=== PATIENT | female | born 1965 | race Caucasian/White ===

== ENCOUNTER 2022-10-10 14:51 | Emergency (ER) | payer OTHER, SELFPAY ==
[2022-10-10 15:09] VITALS: BP 125/64; PULSE 92; RESP 16; TEMP 37; O2SAT 100
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
== END 2022-10-10 15:56 | disposition home or self-care (01) ==
PROVIDERS: Emergency Provider Registered Nurse
DX: J01.10 Acute frontal sinusitis, unspecified (principal)
CPT/HCPCS: 99203; G0463